=== PATIENT | female | born 1995 | race Two or more races ===

== ENCOUNTER 2021-08-21 16:02 | Emergency (ER) | payer SELFPAY ==
[~2021-08-21] VITALS: Ht 160 cm; Wt 58.0 kg
[2021-08-21] MEDS ORDERED: ALBUTEROL (0.083%) 2.5MG/3ML NEB HHN ONE (16:15)
[2021-08-21] MEDS ORDERED: PREDNISONE 20MG TABLET PO ONE (16:30)
[2021-08-21] MEDS ORDERED: P20 MT (17:41)
[2021-08-21] MEDS ORDERED: FLUT1AER INH (17:58)
[2021-08-21 18:26] VITALS: BP 128/86
== END 2021-08-21 18:27 | disposition home or self-care (01) ==
LOC: ER 16:02
DX: J45.901 Unspecified asthma with (acute) exacerbation (principal); U07.1 COVID-19
CPT/HCPCS: 71045; 94640; 99283; J7512; Z7610